=== PATIENT | male | born 1980 | race Hispanic/Latino ===

== ENCOUNTER 2023-05-15 15:15 | Emergency (ER) | payer BC ==
[~2023-05-15] VITALS: Ht 190.5 cm; Wt 120.2 kg
[~2023-05-15 15:15] MED LIST: ACET-2079 PO; AEC81 PO
[2023-05-15] MEDS ORDERED: ACETAMINOPHEN 325 MG TAB PO ONE (18:00)
[2023-05-15] MEDS ORDERED: IBUP-2077 PO (19:29)
[2023-05-15 19:30] VITALS: BP 136/72; PULSE 92; RESP 18; O2SAT 99
== END 2023-05-15 20:47 | disposition home or self-care (01) ==
LOC: EDH 15:15
DX: S92.002A Unspecified fracture of left calcaneus, initial encounter for closed fracture (principal); Z79.82 Long term (current) use of aspirin; Z79.899 Other long term (current) drug therapy; Z98.890 Other specified postprocedural states; W18.39XA Other fall on same level, initial encounter; Y93.89 Activity, other specified; Y92.89 Other specified places as the place of occurrence of the external cause; Y99.8 Other external cause status
CPT/HCPCS: 73610; 73650; 93971